=== PATIENT | female | born 1955 | race Caucasian/White ===

== ENCOUNTER → 2024-04-17 06:39 | Day surgery (SDC) | payer OTHER, SELFPAY | LOC: GI 06:39 | PROVIDERS: ATTENDING PHYSICIAN Internal Medicine Gastroenterology | DX: Z12.11 Encounter for screening for malignant neoplasm of colon (principal); K64.8 Other hemorrhoids; K57.30 Diverticulosis of large intestine without perforation or abscess without bleeding; K62.1 Rectal polyp; K29.50 Unspecified chronic gastritis without bleeding; K31.A0 Gastric intestinal metaplasia, unspecified; K22.89 Other specified disease of esophagus; K31.89 Other diseases of stomach and duodenum; R13.10 Dysphagia, unspecified; R12 Heartburn; Z86.010 Personal history of colon polyps | CPT/HCPCS: 45380; 43239; 88305; 88342 ==

== ENCOUNTER → 2024-08-03 11:10 | Outpatient (REF) | payer OTHER, SELFPAY | LOC: HWRAD 11:10 | PROVIDERS: ATTENDING PHYSICIAN Physician Assistant; FAMILY PHYSICIAN Nurse Practitioner Adult Health | DX: M54.50 Low back pain, unspecified (principal); M79.643 Pain in unspecified hand | CPT/HCPCS: 72100; 73130 ==

== ENCOUNTER → 2024-08-12 11:06 | Outpatient (REF) | payer OTHER, SELFPAY | LOC: HWRAD 11:06 | PROVIDERS: ATTENDING PHYSICIAN Nurse Practitioner Adult Health | DX: M25.561 Pain in right knee (principal); G89.29 Other chronic pain; M25.562 Pain in left knee | CPT/HCPCS: 73564 ==

== ENCOUNTER → 2024-09-16 10:23 | Outpatient (REF) | payer OTHER, SELFPAY | LOC: HWRAD 10:23 | PROVIDERS: ATTENDING PHYSICIAN Family Medicine | DX: R05.8 Other specified cough (principal) | CPT/HCPCS: 71046 ==

== ENCOUNTER → 2025-01-08 09:22 | Outpatient (REF) | payer OTHER, SELFPAY | LOC: HWWDC 09:22 | PROVIDERS: ATTENDING PHYSICIAN Nurse Practitioner Adult Health | DX: E04.1 Nontoxic single thyroid nodule (principal); Z12.31 Encounter for screening mammogram for malignant neoplasm of breast; Z78.0 Asymptomatic menopausal state | CPT/HCPCS: 76536; 77063; 77067 ==

== ENCOUNTER → 2025-01-27 10:23 | Outpatient (REF) | payer OTHER, SELFPAY ==
[2025-01-27 10:44] VITALS: BP 122/77; BP_SYST 72
== END ==
LOC: RADI 10:23
PROVIDERS: ATTENDING PHYSICIAN Nurse Practitioner Adult Health
DX: E04.1 Nontoxic single thyroid nodule (principal)
CPT/HCPCS: 88173; 10005